=== PATIENT | male | born 1985 | race American Indian/Alaskan Native ===

== ENCOUNTER 2020-05-16 18:06 | Emergency (ER) | payer SELFPAY ==
--- NOTE | 2020-05-16 19:01 | XRay Report ---
LEFT WRIST 3 VIEW(S) INDICATION / CLINICAL INFORMATION: Left wrist pain and swelling with history of gout COMPARISON: None available. FINDINGS: BONES / JOINT(S): No acute fracture or subluxation. No significant arthritis. SOFT TISSUES: No significant abnormality. ADDITIONAL FINDINGS: None. Signer Name: Hector Brandt MD Signed: 05/16/2020 6:56 PM Workstation Name: [id number]
[2020-05-16] MEDS ORDERED: KETOROLAC 30 MG/1 ML INJ IM ONE (21:05)
[2020-05-16] MEDS ORDERED: dexAMETHasone 20 MG/5 ML VIAL IM ONE (21:05)
--- NOTE | 2020-05-16 21:05 | Emergency Department Report ---
ED General Adult HPI - General Chief complaint: Extremity Problem,Nontraumatic Stated complaint: PAIN IN HAND Time Seen by Provider: 05/16/20 20:02 Source: patient Mode of arrival: Ambulatory Limitations: No Limitations - History of Present Illness Initial comments: 35-year-old -[place] male patient presents with complaints of left wrist pain x5 days. He states he has history of gout, but typically gets flares in his toes. He denies previous history of gout flare in the wrist. Patient does report that the pain feels similar to his gout pain. He denies any injuries/penetrating injuries to the left wrist or hand, fever/chills/sweats, loss of sensation or weakness in the hand, or other prior medical history. Patient rates his current pain as a 10/10 in severity and states he has difficulty with movement of the wrist and hand due to the pain. Patient reports he was seen at an urgent care 2 days ago and placed on colchicine and his symptoms have not improved with this medication. He reports colchicine normally works for his gout flares. -: Gradual - Related Data Previous Rx's Medication Instructions Recorded Last Taken Type Acetaminophen/Codeine [Tylenol 1 tab PO Q6H PRN #8 tab 05/16/20 Unknown Rx /Codeine # 3 tab] Indomethacin 50 mg PO Q8H PRN #15 capsule 05/16/20 Unknown Rx Prednisone [predniSONE 10 mg 10 mg PO .TAPER #1 tab.ds.pk 05/16/20 Unknown Rx (6-Day Pack, 21 Tabs)] Allergies Allergy/AdvReac Type Severity Reaction Status Date / Time No Known Allergies Allergy Unverified 05/16/20 18:12 ED Review of Systems ROS: Stated complaint: PAIN IN HAND Other details as noted in HPI Constitutional: denies: chills, diaphoresis, fever, malaise, weakness Gastrointestinal: denies: nausea, vomiting Musculoskeletal: joint swelling, arthralgia Skin: change in color. denies: rash, lesions Neurological: denies: numbness, paresthesias Hematological/Lymphatic: denies: as per HPI, swollen glands ED Past Medical Hx - Past Medical History Previous Medical History?: Yes Additional medical history: Gout - Medications Home Medications: Home Medications Medication Instructions Recorded Confirmed Last Taken Type Acetaminophen/Codeine [Tylenol 1 tab PO Q6H PRN #8 tab 09/09/20 Unknown Rx /Codeine # 3 tab] Indomethacin 50 mg PO Q8H PRN #15 capsule 05/16/20 Unknown Rx Prednisone [predniSONE 10 mg 10 mg PO .TAPER #1 tab.ds.pk 05/16/20 Unknown Rx (6-Day Pack, 21 Tabs)] ED Physical Exam - General Limitations: No Limitations General appearance: alert, in no apparent distress - Head Head exam: Present: atraumatic, normocephalic - Eye Eye exam: Present: normal appearance. Absent: scleral icterus - Neck Neck exam: Present: normal inspection - Respiratory Respiratory exam: Present: normal lung sounds bilaterally. Absent: respiratory distress - Cardiovascular Cardiovascular Exam: Present: regular rate, normal rhythm. Absent: systolic murmur, diastolic murmur, rubs, gallop - Extremities Exam Extremities exam: Present: other (Mild to moderate swelling of the left wrist noted with erythema and significant tenderness to palpation; range of motion is limited secondary to pain; normal perfusion of the hand and fingers noted; normal radial pulse noted; area is warm to touch) - Neurological Exam Neurological exam: Present: alert, oriented X3, normal gait - Psychiatric Psychiatric exam: Present: normal affect, normal mood - Skin Skin exam: Present: warm, dry, intact, normal color. Absent: rash ED Course Vital Signs 05/16/20 18:10 Temperature 97.8 F Pulse Rate 84 Respiratory 20 Rate Blood Pressure 176/103 [Right] O2 Sat by Pulse 100 Oximetry ED Medical Decision Making - Radiology Data Radiology results: report reviewed LEFT WRIST 3 VIEW(S) INDICATION / CLINICAL INFORMATION: Left wrist pain and swelling with history of gout COMPARISON: None available. FINDINGS: BONES / JOINT(S): No acute fracture or subluxation. No significant arthritis. SOFT TISSUES: No significant abnormality. ADDITIONAL FINDINGS: None. - Medical Decision Making 35-year-old -[place] male patient presents with complaints of left wrist pain x5 days. He states he has history of gout, but typically gets flares in his toes. He denies previous history of gout flare in the wrist. Patient does report that the pain feels similar to his gout pain. He denies any injuries/penetrating injuries to the left wrist or hand, fever/chills/sweats, loss of sensation or weakness in the hand, or other prior medical history. Patient rates his current pain as a 10/10 in severity and states he has difficulty with movement of the wrist and hand due to the pain. Patient reports he was seen at an urgent care 2 days ago and placed on colchicine and his symptoms have not improved with this medication. He reports colchicine normally works for his gout flares. Given no history of gout in the wrists, will rule out cellulitis. CBC, BMP, and uric acid labs pending. X-ray of the wrist is normal. Patient handed off to Amilcar Ponce PA-C pending lab results. Critical care attestation.: If time is entered above; I have spent that time in minutes in the direct care of this critically ill patient, excluding procedure time. ED Disposition Clinical Impression: Gout flare Qualifiers: Gout site: wrist Gout etiology: idiopathic Laterality: left Qualified Code(s): M10.032 - Idiopathic gout, left wrist Disposition: TO HOME OR SELFCARE Is pt being admited?: No Condition: Stable Instructions: Acute Gouty Arthritis (ED) Prescriptions: Indomethacin 50 mg PO Q8H PRN #15 capsule PRN Reason: pain Prednisone [predniSONE 10 mg (6-Day Pack, 21 Tabs)] 10 mg PO .TAPER #1 tab.ds.pk Acetaminophen/Codeine [Tylenol /Codeine # 3 tab] 1 tab PO Q6H PRN #8 tab PRN Reason: Pain , Severe (7-10) Referrals: PRIMARY CARE, [Primary Care Provider] - 3-5 Days
[2020-05-16 21:25] VITALS: BP 176/103
[2020-05-16 22:12] LABS: BUN/Creatinine Ratio 18; Blood Urea Nitrogen 20 mg/dL (9-20); Calcium 9.4 mg/dL (8.4-10.2); Hemolysis Index 10
[2020-05-16 22:17] LABS: Basophils # (Auto) 0.1 K/mm3 (0.0-0.1); Basophils % (Auto) 0.5 % (0.0-1.8); Eosinophils % (Auto) 0.4 % (0.0-4.3); Hematocrit 39.3 % (35.5-45.6); Hemoglobin 12.9 gm/dl (11.8-15.2); Lymphocytes % (Auto) 27.9 % (13.4-35.0); Mean Corpuscular HGB Conc 33 % (32-34); Mean Corpuscular Volume 83 fl (84-94); Monocytes # (Auto) 0.9 K/mm3 (0.0-0.8); Monocytes % (Auto) 8.3 % (0.0-7.3); Platelet Count 250 K/mm3 (140-440); Red Blood Count 4.72 M/mm3 (3.65-5.03); Red Cell Distribution Width 15.1 % (13.2-15.2)
== END 2020-05-16 22:55 | disposition home or self-care (01) ==
LOC: ED 18:06
DX: M10.9 Gout, unspecified (principal); Z79.899 Other long term (current) drug therapy
CPT/HCPCS: 36415; 73110; 80048; 84550; 85025; 96372; 99283; J1100; J1885

== ENCOUNTER 2020-07-07 07:28 | Emergency (ER) | payer BC ==
[2020-07-07 08:00] VITALS: BP 141/92
--- NOTE | 2020-07-07 09:21 | Emergency Department Report ---
HPI - General Chief Complaint: Extremity Problem,Nontraumatic Time Seen by Provider: 07/07/20 09:03 - HPI HPI: This is a 35-year-old male who presents to the emergency department with complaint of a few days of right elbow pain. Patient has a history of gout and says that he has been taking indomethacin without any relief. The patient was also previously on colchicine for his last gout attack but that has run out. He denies that it is swollen, but does feel as if he cannot fully extend the elbow. Movement of the elbow and palpation of the elbow increases his pain, which is currently 7 out of 10 in intensity. The patient later did tell me that he did have some recent trauma to the elbow. A few days ago he was riding on some heavy machinery, something like a front end forklift wheel loader, when he went over a bump and hit his right elbow on the machinery. He had some discomfort at that time but it improved and then the discomfort has progressively worsened since. ED Past Medical Hx - Past Medical History Previous Medical History?: Yes Additional medical history: Gout - Surgical History Past Surgical History?: No - Medications Home Medications: Home Medications Medication Instructions Recorded Confirmed Last Taken Type Acetaminophen/Codeine [Tylenol 1 tab PO Q6H PRN #8 tab 05/16/20 Unknown Rx /Codeine # 3 tab] Indomethacin 50 mg PO Q8H PRN #15 capsule 05/16/20 Unknown Rx Prednisone [predniSONE 10 mg 10 mg PO .TAPER #1 tab.ds.pk 05/16/20 Unknown Rx (6-Day Pack, 21 Tabs)] Colchicine 0.6 mg PO ONCE #3 capsule 07/07/20 Unknown Rx HYDROcodone/APAP 5-325 [[place] 1 each PO Q6HR PRN #10 tablet 07/07/20 Unknown Rx 5/325] ED Review of Systems ROS: Stated complaint: RT ELBOW PAIN Other details as noted in HPI Comment: All other systems reviewed and negative Constitutional: denies: chills, fever Musculoskeletal: arthralgia. denies: joint swelling Skin: denies: rash, change in color Neurological: denies: numbness, paresthesias Physical Exam - Physical Exam Vital Signs: Vital Signs 07/07/20 07:58 Temperature 98.1 F Pulse Rate 66 Respiratory 18 Rate Blood Pressure 141/92 O2 Sat by Pulse 96 Oximetry Physical Exam: GENERAL: The patient is well-developed well-nourished. HENT: Normocephalic. Atraumatic. Patient has moist mucous membranes. EYES: Extraocular motions are intact. NECK: Supple. Trachea is midline. SKIN: Skin is warm and dry. Mild swelling of the right elbow but no erythema, warmth, fluctuance. NEURO: The patient is awake, alert, and oriented. The patient is cooperative. The patient has no focal neurologic deficits. Normal speech. MUSCULOSKELETAL: Tenderness to palpation of the right posterior elbow, at the olecranon. The patient has difficulty fully extending the elbow secondary to pain. Radial pulse +2/4 and capillary refill less than 2 seconds to the affected right upper extremity. ED Course Vital Signs 07/07/20 07:58 Temperature 98.1 F Pulse Rate 66 Respiratory 18 Rate Blood Pressure 141/92 O2 Sat by Pulse 96 Oximetry ED Medical Decision Making - Radiology Data Radiology results: report reviewed RIGHT ELBOW 3 VIEW(S) INDICATION / CLINICAL INFORMATION: MAIN COMPARISON: None available. FINDINGS: BONES / JOINT(S): Mild elevation of the anterior and posterior fat pads which can be seen in setting of radial head fracture. No definite cortical disruption is appreciated. No significant arthritis. SOFT TISSUES: Mild regional edema. ADDITIONAL FINDINGS: None. IMPRESSION: 1. Possible occult radial head fracture. Consider correlation with history and further evaluation as warranted. - Medical Decision Making The patient presents with a few days of right elbow pain. He has a history of gout but the patient also has a recent history of hitting his elbow on some heavy machinery. He is neurovascular intact. X-ray was read by radiology as showing a possible occult radial head fracture. Patient will be placed in a long posterior splint and given a referral for an orthopedist. The patient was also given some colchicine, in case there is a gouty arthropathy component. He will return to the ER with any worsening of his symptoms or with any acute distress. Critical Care Time: No Critical care attestation.: If time is entered above; I have spent that time in minutes in the direct care of this critically ill patient, excluding procedure time. ED Disposition Clinical Impression: Right elbow pain, History of gout, Abnormal x-ray of bone Radial head fracture, closed Qualifiers: Encounter type: initial encounter Fracture alignment: nondisplaced Laterality: right Qualified Code(s): S52.124A - Nondisplaced fracture of head of right radius, initial encounter for closed fracture Disposition: - TO HOME OR SELFCARE Is pt being admited?: No Condition: Stable Instructions: Elbow Fracture in Adults (ED), Acute Gouty Arthritis (ED) Additional Instructions: The x-ray of your right elbow was read by radiology as concern for a possible radial head fracture. You will be placed in a splint and I am giving you a referral for a local orthopedist, Dr. Balbuena, for further evaluation. You have been prescribed a medication that is sedating and therefore should not be taken prior to driving, working, and responsible for children and in no way should be mixed with alcohol of any quantity. Return to the emergency department with any worsening of your symptoms, new or concerning symptoms not addressed during this current emergency department visit, or with any acute distress. Prescriptions: Colchicine 0.6 mg PO ONCE #3 capsule HYDROcodone/APAP 5-325 [[place] 5/325] 1 each PO Q6HR PRN #10 tablet PRN Reason: Pain Referrals: PRIMARY CAREMD [Primary Care Provider] - 2-3 Days CONSTANCE BALBUENA MD [Staff Physician] - 2-3 Days Time of Disposition: 09:53
--- NOTE | 2020-07-07 09:44 | XRay Report ---
RIGHT ELBOW 3 VIEW(S) INDICATION / CLINICAL INFORMATION: MAIN COMPARISON: None available. FINDINGS: BONES / JOINT(S): Mild elevation of the anterior and posterior fat pads which can be seen in setting of radial head fracture. No definite cortical disruption is appreciated. No significant arthritis. SOFT TISSUES: Mild regional edema. ADDITIONAL FINDINGS: None. IMPRESSION: 1. Possible occult radial head fracture. Consider correlation with history and further evaluation as warranted. Signer Name: Hema Breaux MD Signed: 07/07/2020 9:39 AM Workstation Name: [id number]
== END 2020-07-07 10:11 | disposition home or self-care (01) ==
LOC: ED 07:28
DX: S52.121A Displaced fracture of head of right radius, initial encounter for closed fracture (principal); Z79.899 Other long term (current) drug therapy; X58.XXXA Exposure to other specified factors, initial encounter; Y93.89 Activity, other specified; Y92.89 Other specified places as the place of occurrence of the external cause; Y99.8 Other external cause status